=== PATIENT | female | born 1975 ===

== ENCOUNTER 2022-02-08 05:58 | Emergency (ER) | payer SELFPAY ==
[~2022-02-08] VITALS: Ht 157.5 cm; Wt 59.7 kg
[2022-02-08 06:06] VITALS: BP 108/56
== END 2022-02-08 09:20 | disposition left against medical advice (07) ==
LOC: ER 07:33
DX: Z53.21 Procedure and treatment not carried out due to patient leaving prior to being seen by health care provider (principal)